=== PATIENT | male | born 1985 | race African-American/Black ===

== ENCOUNTER 2017-12-14 13:22 | Emergency (ER) | payer BC, OTHER ==
[2017-12-14 13:30] VITALS: BP 124/80
--- NOTE | 2017-12-14 14:06 | UC ---
Headache HPI - HPI Summary HPI Summary: 32 yo male presents with increasing headaches over the last year. He tells me that about a year ago he started getting mild headaches that would start in his b/l temporal region and spread "like a wave" to the top of his head and then back of his head. About 6 months ago this progressed to having some left eye pain and tearing. Over the last month these headaches have been happening more frequently (about twice a week). He saw an LOAD TESTER at his PCP's office yesterday and was dx'd with migraines and rx'd imitrex to use at first sign of headaches. Today he was at work and felt his eyes become photophobic and sensitive, pain in his temples began so he took an imitrex and ibuprofen, but had no relief. His headache advanced through his head like a "wave" as it previously has and his left eye began to hurt and have tearing. He had to stop working and go to his car until his headache improved. He called his PCP and they recommended to go to urgent care for eval, but scheduled him an appt tomorrow with the MD at his PCP's office. 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 He denies fever, chills, recent illness, vision changes, weakness, dizziness, SOB, chest pain, palpitations, abdominal pain, n/v, or hx of head trauma. - History Of Current Complaint Chief Complaint: UCHeadache Stated Complaint: HEADACHE Hx Obtained From: Patient Onset/Duration: Gradual Onset Currently Pain Is: Severe Pain Intensity: 8 Pain Scale Used: 0-10 Numeric - Allergies/Home Medications Allergies/Adverse Reactions: Allergies Allergy/AdvReac Type Severity Reaction Status Date / Time Penicillins Allergy Rash Verified 12/14/17 13:30 PMH/Surg Hx/FS Hx/Imm Hx - Additional Past Medical History Additional PMH: None - Surgical History Surgical History: None - Family History Known Family History: Positive: None - Social History Occupation: Employed Full-time Lives: With Family Alcohol Use: Occasionally Alcohol Amount: beer 1-2 Substance Use Type: None Smoking Status (MU): Never Smoked Tobacco - Immunization History Most Recent Influenza Vaccination: never Most Recent Tetanus Shot: 2014 Review of Systems Constitutional: Negative Eyes: Negative ENT: Negative Respiratory: Negative Cardiovascular: Negative Gastrointestinal: Negative Genitourinary: Negative Neurovascular: Negative Musculoskeletal: Negative Neurological: Headache Psychological: Negative All Other Systems Reviewed And Are Negative: Yes Physical Exam - Summary Physical Exam Summary: GENERAL: NAD. WDWN. No pain distress. SKIN: No rashes, sores, ulcers, masses, lesions. HEENT: Head: AT/NC Eyes: PERRLA. EOM intact. Conjunctiva clear without inflammation or discharge. Ears: Hearing grossly normal. TMs intact, no bulging, erythema, or edema. Nose: Nasal mucosa pink and moist. NTTP maxillary and frontal sinus. Throat: Posterior oropharynx without exudates, erythema, or tonsillar enlargement. Uvula midline. NECK: Supple. Nontender. No lymphadenopathy. CHEST: CTAB. No r/r/w. No accessory muscle use. Breathing comfortably and in no distress. CV: RRR. Without m/r/g. Pulses intact. Brisk cap refill. MSK: FROM in B/L UEs and LEs with symmetric strength. NEURO: A&Ox3. 3 word recall, remote, recent memory, ability to follow 2-step directions, and attention intact. CN: II: Peripheral castellano intact. Vision normal. III, IV, : EOMI. No nystagmus. PERRLA. V: Sensations intact and symmetric. Opens mouth and clenches teeth. VII: No facial asymmetry. Forehead wrinkles. Grins, shuts eyes, frowns, puffs cheeks. VIII: Hearing intact to finger rub. IX, X: Swallows and coughs. Uvula midline. XI: Shrugs shoulders. Turns head against resistance. XII: No tongue deviation [id number] are intact. Gait with normal base. Romberg: maintains balance, no pronator drift. Normal speech. No facial drooping. PSYCH: Age appropriate behavior. Triage Information Reviewed: Yes Vital Signs: Initial Vital Signs Temp 97.4 F 12/14/17 13:27 Pulse 56 12/14/17 13:27 Resp 16 12/14/17 13:27 BP 124/80 12/14/17 13:27 Pulse Ox 100 12/14/17 13:27 Vital Signs Reviewed: Yes Headache Course/Dx - Course Course Of Treatment: Suspect cluster headaches, possibly made worse by his new working conditions. He was given 60mg toradol IM in the clinical course and will try an rx of prednisone for relief. Keep f/u with PCP tomorrow for further eval. - Differential Dx/Diagnosis Provider Diagnoses: Cluster headaches Discharge - Sign-Out/Discharge Documenting (check all that apply): Patient Departure All imaging exams completed and their final reports reviewed: No Studies - Discharge Plan Condition: Stable Disposition: HOME Prescriptions: predniSONE TAB* [Deltasone 20 MG TAB*] 60 mg PO DAILY #12 tab Patient Education Materials: Cluster Headache (ED) Referrals: No Primary Care Phys,NOPCP [Primary Care Provider] - Additional Instructions: If you develop a fever, shortness of breath, chest pain, new or worsening symptoms - please call your PCP or go to the ED. 1) Keep your appointment tomorrow with your PCP for further evaluation - Billing Disposition and Condition Condition: STABLE Disposition: Home
[2017-12-14] MEDS ORDERED: Ketorolac INJ* 60 MG/2 ML VIAL IM ONE (14:32)
== END 2017-12-14 15:25 | disposition home or self-care (01) ==
LOC: UCEAST 13:22
DX: G44.009 Cluster headache syndrome, unspecified, not intractable (principal); Z88.0 Allergy status to penicillin
CPT/HCPCS: 96372; 99211; G0463; J1885